=== PATIENT | male | born 1980 | race Hispanic/Latino ===

== ENCOUNTER → 2017-06-29 | Outpatient (REF) | payer OTHER, SELFPAY ==
[2017-06-29 18:25] LABS: BASO % 0.4 % (0.0-1.0); EOS # 0.1 10^3/uL (0.0-0.50); EOS % 1.4 % (0.0-3.0); HEMATOCRIT 43.7 % (42.0-52.0); HEMOGLOBIN 14.6 g/dl (14.0-18.0); IMMATURE GRANULOCYTE % 0.3 % (0-3.0); LYMPH # 2.8 10^3/uL (1.5-4.5); LYMPH % 28.3 % (24.0-44.0); MEAN CORPUSCULAR HEMOGLOBIN 30.1 pg (27.0-33.0); MEAN CORPUSCULAR HGB CONC 33.4 g/dl (32.0-36.5); MEAN CORPUSCULAR VOLUME 90.1 fl (80.0-96.0); MONO # 0.7 10^3/uL (0.0-0.8); MONO % 7.4 % (0.0-5.0); NEUTROPHILS # 6.2 10^3/uL (1.8-7.7); NEUTROPHILS % 62.2 % (36.0-66.0); PLATELET COUNT, AUTOMATED 262 10^3/uL (150-450); RED BLOOD COUNT 4.85 10^6/uL (4.30-6.10); RED CELL DISTRIBUTION WIDTH 12.3 % (11.5-14.5)
[2017-06-29 18:58] LABS: ALBUMIN 3.7 GM/DL (3.2-5.2); ALBUMIN/GLOBULIN RATIO 1.23 (1.00-1.93); ALKALINE PHOSPHATASE 104 U/L (45-117); ALT/SGPT 28 U/L (12-78); ANION GAP 7 MEQ/L (8-16); AST/SGOT 17 U/L (7-37); BILIRUBIN,TOTAL 0.5 MG/DL (0.2-1.0); BLOOD UREA NITROGEN 8 MG/DL (7-18); CALCIUM LEVEL 9.3 MG/DL (8.5-10.1); CARBON DIOXIDE LEVEL 29 MEQ/L (21-32); CHLORIDE LEVEL 107 MEQ/L (98-107); CHOLESTEROL LEVEL 194 MG/DL (<200); CHOLESTEROL RISK RATIO 4.511 (<5); CREATININE FOR GFR 0.78 MG/DL (0.70-1.30); GLOMERULAR FILTRATION RATE > 60.0 (>60); GLUCOSE, FASTING 194 MG/DL (70-100); HDL CHOLESTEROL 43 MG/DL (>40); LDL CHOLESTEROL 119.6 MG/DL (<100); NON-HDL-C 151 MG/DL; POTASSIUM SERUM 4.1 MEQ/L (3.5-5.1); SODIUM LEVEL 143 MEQ/L (136-145); TOTAL PROTEIN 6.7 GM/DL (6.4-8.2); TRIGLYCERIDES LEVEL 157 MG/DL (<150)
[2017-06-29 19:48] LABS: ESTIMATED AVERAGE GLUCOSE 197 MG/DL (60-110); HEMOGLOBIN A1c 8.5 %
[2017-06-29 21:19] LABS: CHLAMYDIA DNA AMPLIFICATION NEGATIVE (NEGATIVE); GC DNA AMPLIFICATION NEGATIVE (NEGATIVE)
[2017-07-01 12:32] LABS: HIV 1&2 SCREEN CENTAUR NEGATIVE (NEGATIVE)
[2017-07-03 00:07] LABS: T PALLIDUM ANTIBODIES Negative (Negative)
== END ==
LOC: M LAB REF 16:36
DX: Z00.00 Encounter for general adult medical examination without abnormal findings (principal); Z68.29 Body mass index [BMI] 29.0-29.9, adult; F41.9 Anxiety disorder, unspecified; Z11.3 Encounter for screening for infections with a predominantly sexual mode of transmission
CPT/HCPCS: 84443

== ENCOUNTER → 2018-03-10 | Outpatient (REF) | payer OTHER | LOC: M LAB REF 16:38 | DX: J02.9 Acute pharyngitis, unspecified (principal) | CPT/HCPCS: 87070 ==

== ENCOUNTER 2018-10-23 11:23 | Emergency (ER) | payer OTHER ==
[~2018-10-23] VITALS: Ht 177.8 cm; Wt 89.1 kg
[~2018-10-23 11:23] MED LIST: AMBI10TA PO; DESYREL PO; INSULANT SC; LAMI25TA OR; LEXA1TAB2 OR; LOPI600T PO; NOVOLOG100 MG/ML SC
--- NOTE | 2018-10-23 13:13 | REP ---
Soft-tissue peroneal ultrasound: History: Swollen area at the base of the scrotum. Question abscess. Findings: Sonographic scanning in the area in question in the perineum demonstrates a 3.1 x 2.7 x 1.8 cm heterogeneous hypoechoic area with peripheral hyperemia consistent with abscess. Electronically Signed by Bertrand Galvan MD 10/23/2018 01:04 P
[2018-10-23] MEDS ORDERED: LIDOCAINE 2% W/EPIN INJ 20ML **PRES FREE INJ ONE (13:15)
[2018-10-23] MEDS ORDERED: BACT800T5 PO (13:56)
[2018-10-23 14:00] VITALS: BP 128/78
== END 2018-10-23 14:04 | disposition home or self-care (01) ==
LOC: M ED 11:23
DX: K61.1 Rectal abscess (principal); E11.9 Type 2 diabetes mellitus without complications; G47.30 Sleep apnea, unspecified; Z72.0 Tobacco use

== ENCOUNTER → 2019-03-04 | Outpatient (REF) | payer OTHER, MEDICAID ==
[~2019-03-04] MED LIST changes: +BACT800T5 PO
[2019-03-04 17:10] LABS: ALBUMIN 3.3 GM/DL (3.2-5.2); ALT/SGPT 26 U/L (12-78); BILIRUBIN,DIRECT < 0.1 MG/DL (0.0-0.2); BILIRUBIN,TOTAL 0.5 MG/DL (0.2-1.0); BLOOD UREA NITROGEN 9 MG/DL (7-18); CALCIUM LEVEL 8.8 MG/DL (8.5-10.1); CARBON DIOXIDE LEVEL 24 MEQ/L (21-32); CHLORIDE LEVEL 105 MEQ/L (98-107); CHOLESTEROL LEVEL 222 MG/DL (<200); CHOLESTEROL RISK RATIO 5.842 (<5); CREATININE FOR GFR 0.77 MG/DL (0.70-1.30); FREE T4 0.99 NG/DL (0.76-1.46); GLOMERULAR FILTRATION RATE > 60.0 (>60); GLUCOSE, FASTING 321 MG/DL (70-100); HDL CHOLESTEROL 38 MG/DL (>40); LDL CHOLESTEROL 145 MG/DL (<100); NON-HDL-C 184 MG/DL; POTASSIUM SERUM 4.4 MEQ/L (3.5-5.1); SODIUM LEVEL 137 MEQ/L (136-145); THYROID STIMULATING HORMONE 0.798 uIU/ML (0.358-3.740); TOTAL 25(OH) VITAMIN D 11.2 NG/ML (30.0-100.0); TOTAL PROTEIN 6.5 GM/DL (6.4-8.2); TRIGLYCERIDES LEVEL 196 MG/DL (<150)
[2019-03-04 17:11] LABS: HEMOGLOBIN A1c 12.2 %
[2019-03-04 17:30] LABS: BASO % 0.5 % (0.0-1.0); EOS # 0.1 10^3/uL (0.0-0.5); EOS % 1.3 % (0.0-3.0); HEMATOCRIT 46.4 % (42.0-52.0); HEMOGLOBIN 15.7 g/dl (13.5-17.5); LYMPH # 3.2 10^3/uL (1.5-5.0); LYMPH % 36.7 % (24.0-44.0); MEAN CORPUSCULAR HEMOGLOBIN 30.1 pg (27.0-33.0); MEAN CORPUSCULAR HGB CONC 33.8 g/dl (32.0-36.5); MEAN CORPUSCULAR VOLUME 89.1 fl (80.0-96.0); MONO # 0.6 10^3/uL (0.0-0.8); MONO % 7.2 % (0.0-5.0); NEUTROPHILS # 4.7 10^3/uL (1.5-8.5); NEUTROPHILS % 54.1 % (36.0-66.0); PLATELET COUNT, AUTOMATED 276 10^3/uL (150-450); RED BLOOD COUNT 5.21 10^6/uL (4.30-6.10); WHITE BLOOD COUNT 8.7 10^3/uL (4.0-10.0)
[2019-03-04 17:50] LABS: HIV 1&2 SCREEN CENTAUR NEGATIVE (NEGATIVE)
[2019-03-08 00:06] LABS: HSV IgM TYPES 1&2 <0.91 Ratio (0.00-0.90)
== END ==
LOC: M LAB REF 16:30
PROVIDERS: ATTEND Family Medicine
DX: Z87.438 Personal history of other diseases of male genital organs (principal)

== ENCOUNTER → 2019-06-17 | Outpatient (REF) | payer OTHER, MEDICAID ==
[2019-06-17 17:19] LABS: INFLUENZA A AMPLIFICATION NEGATIVE (NEGATIVE); INFLUENZA B AMPLIFICATION NEGATIVE (NEGATIVE)
== END ==
LOC: M LAB REF 16:33
PROVIDERS: ATTEND Physician Assistant
DX: J11.1 Influenza due to unidentified influenza virus with other respiratory manifestations (principal)

== ENCOUNTER 2020-04-18 12:00 | Emergency (ER) | payer MEDICAID, OTHER ==
[~2020-04-18] VITALS: Ht 182.9 cm; Wt 91.3 kg
[2020-04-18] MEDS ORDERED: CYCL-707 PO (12:54)
[2020-04-18] MEDS ORDERED: IBUP-1022 PO (12:54)
[2020-04-18 13:03] VITALS: BP 121/77
== END 2020-04-18 13:09 | disposition home or self-care (01) ==
LOC: M ED 12:00
DX: S39.012A Strain of muscle, fascia and tendon of lower back, initial encounter (principal); X50.0XXA Overexertion from strenuous movement or load, initial encounter; Y92.89 Other specified places as the place of occurrence of the external cause; Y93.89 Activity, other specified; Y99.8 Other external cause status; M54.9 Dorsalgia, unspecified; G89.29 Other chronic pain; G47.30 Sleep apnea, unspecified; E11.9 Type 2 diabetes mellitus without complications; F17.200 Nicotine dependence, unspecified, uncomplicated

== ENCOUNTER → 2020-05-31 | Outpatient (REF) | payer OTHER ==
[~2020-05-31] MED LIST changes: +CYCL-707 PO; +IBUP-1022 PO
[2020-05-31 13:23] LABS: HEMOGLOBIN A1c 11.2 %
[2020-05-31 13:39] LABS: ALBUMIN 3.4 GM/DL (3.2-5.2); ALT/SGPT 17 U/L (12-78); BILIRUBIN,TOTAL 0.5 MG/DL (0.2-1.0); BLOOD UREA NITROGEN 6 MG/DL (7-18); CALCIUM LEVEL 9.6 MG/DL (8.5-10.1); CARBON DIOXIDE LEVEL 26 MEQ/L (21-32); CHLORIDE LEVEL 106 MEQ/L (98-107); CHOLESTEROL LEVEL 199 MG/DL (<200); CHOLESTEROL RISK RATIO 4.422 (<5); GLOMERULAR FILTRATION RATE > 60.0 (>60); GLUCOSE, FASTING 278 MG/DL (70-100); HDL CHOLESTEROL 45 MG/DL (>40); LDL CHOLESTEROL 128 MG/DL (<100); NON-HDL-C 154 MG/DL; POTASSIUM SERUM 4.6 MEQ/L (3.5-5.1); SODIUM LEVEL 140 MEQ/L (136-145); THYROID STIMULATING HORMONE 0.572 uIU/ML (0.358-3.740); TOTAL PROTEIN 6.4 GM/DL (6.4-8.2); TRIGLYCERIDES LEVEL 132 MG/DL (<150)
== END ==
LOC: M LAB REF 11:19
PROVIDERS: ATTEND Pediatrics
DX: Z13.228 Encounter for screening for other metabolic disorders (principal)

== ENCOUNTER 2020-06-30 12:06 | Emergency (ER) | payer OTHER ==
[~2020-06-30] VITALS: Ht 180.3 cm; Wt 91.0 kg
[2020-06-30] MEDS ORDERED: METF10004 (12:15)
[2020-06-30] MEDS ORDERED: methocarbamoL 750 MG TAB PO ONE (12:35)
[2020-06-30] MEDS ORDERED: IBUPROFEN 600MG TAB PO ONE (12:35)
--- NOTE | 2020-06-30 13:11 | REP ---
INDICATION: low back injury; vert. point tender. COMPARISON: None. TECHNIQUE: Five views. FINDINGS: There is mild scoliosis convex left. Vertebral body heights, interspacing and alignment are normal. Schmorl's nodes are incidentally noted in the opposing endplates of L1 and L2. The pedicles and facets are unremarkable. There is no spondylolysis or spondylolisthesis. The sacroiliac articulations are unremarkable. IMPRESSION: Mild scoliosis. Endplate Schmorl's nodes as described. <Electronically signed by Ron Leahy > 06/30/20 [id number]
[2020-06-30] MEDS ORDERED: ROBA750T4 PO (13:29)
[2020-06-30 13:37] VITALS: BP 121/63
== END 2020-06-30 13:38 | disposition home or self-care (01) ==
LOC: M ED 12:06
DX: S39.012A Strain of muscle, fascia and tendon of lower back, initial encounter (principal); X50.0XXA Overexertion from strenuous movement or load, initial encounter; Y92.9 Unspecified place or not applicable; Y93.9 Activity, unspecified; Y99.0 Civilian activity done for income or pay; E11.9 Type 2 diabetes mellitus without complications; F17.200 Nicotine dependence, unspecified, uncomplicated; Z79.899 Other long term (current) drug therapy; Z79.84 Long term (current) use of oral hypoglycemic drugs

== ENCOUNTER → 2022-01-22 | Outpatient (REF) | payer OTHER ==
[~2022-01-22] MED LIST changes: +METF10004; +ROBA750T4 PO
[2022-01-22 17:30] LABS: BASO % 0.3 % (0.0-1.0); EOS # 0.1 10^3/uL (0.0-0.5); EOS % 1.2 % (0.0-3.0); HEMATOCRIT 45.2 % (42.0-52.0); HEMOGLOBIN 14.7 g/dl (13.5-17.5); LYMPH # 3.4 10^3/uL (1.5-5.0); LYMPH % 38.4 % (24.0-44.0); MEAN CORPUSCULAR HEMOGLOBIN 30.6 pg (27.0-33.0); MEAN CORPUSCULAR HGB CONC 32.5 g/dl (32.0-36.5); MONO # 0.7 10^3/uL (0.0-0.8); MONO % 8.1 % (2.0-8.0); NEUTROPHILS # 4.6 10^3/uL (1.5-8.5); NEUTROPHILS % 51.8 % (36.0-66.0); PLATELET COUNT, AUTOMATED 268 10^3/uL (150-450); RED BLOOD COUNT 4.81 10^6/uL (4.30-6.10); WHITE BLOOD COUNT 8.9 10^3/uL (4.0-10.0)
[2022-01-22 17:40] LABS: ALBUMIN 3.7 GM/DL (3.2-5.2); ALT/SGPT 65 U/L (12-78); BILIRUBIN,TOTAL 0.4 MG/DL (0.2-1.0); BLOOD UREA NITROGEN 8 MG/DL (7-18); CALCIUM LEVEL 9.1 MG/DL (8.5-10.1); CARBON DIOXIDE LEVEL 25 MEQ/L (21-32); CHLORIDE LEVEL 111 MEQ/L (98-107); CHOLESTEROL LEVEL 140 MG/DL (<200); CHOLESTEROL RISK RATIO 2.258 (<5); CREATININE FOR GFR 0.75 MG/DL (0.70-1.30); GLOMERULAR FILTRATION RATE > 60.0 (>60); GLUCOSE, FASTING 83 MG/DL (70-100); HDL CHOLESTEROL 62 MG/DL (>40); LDL CHOLESTEROL 62 MG/DL (<100); NON-HDL-C 78 MG/DL; POTASSIUM SERUM 4.3 MEQ/L (3.5-5.1); SODIUM LEVEL 142 MEQ/L (136-145); TOTAL PROTEIN 6.6 GM/DL (6.4-8.2); TRIGLYCERIDES LEVEL 79 MG/DL (<150)
[2022-01-22 18:15] LABS: VITAMIN B12 LEVEL 550 PG/ML (247-911)
[2022-01-22 22:43] LABS: HEMOGLOBIN A1c 6.4 %
== END ==
LOC: M LAB REF 16:08
PROVIDERS: ATTEND Pediatrics
DX: E11.9 Type 2 diabetes mellitus without complications (principal); E78.5 Hyperlipidemia, unspecified; R20.2 Paresthesia of skin

== ENCOUNTER → 2022-02-10 | Outpatient (CLI) | payer OTHER | LOC: M RAD 10:39 | PROVIDERS: ATTEND Pediatrics | DX: R20.2 Paresthesia of skin (principal) ==

== ENCOUNTER 2022-04-12 15:35 | Emergency (ER) | payer OTHER ==
[~2022-04-12] VITALS: Ht 182.9 cm; Wt 94.6 kg
[~2022-04-12 15:35] MED LIST changes: -METF10004; +METF10004 PO
[2022-04-12 15:36] VITALS: BP 131/73
[2022-04-12] MEDS ORDERED: HYDR-3363 (15:46)
[2022-04-12] MEDS ORDERED: TRUL10IN (15:46)
[2022-04-12] MEDS ORDERED: SERT50TA29 (15:46)
[2022-04-12] MEDS ORDERED: CETI-24 (15:46)
== END 2022-04-12 17:59 | disposition home or self-care (01) ==
LOC: M ED 17:37
DX: S93.401A Sprain of unspecified ligament of right ankle, initial encounter (principal); X50.1XXA Overexertion from prolonged static or awkward postures, initial encounter; Y99.0 Civilian activity done for income or pay; E11.9 Type 2 diabetes mellitus without complications; F41.9 Anxiety disorder, unspecified; F32.9 Major depressive disorder, single episode, unspecified; G47.33 Obstructive sleep apnea (adult) (pediatric); F17.200 Nicotine dependence, unspecified, uncomplicated; Z79.84 Long term (current) use of oral hypoglycemic drugs; Z79.899 Other long term (current) drug therapy

== ENCOUNTER 2022-07-21 19:17 | Emergency (ER) | payer OTHER ==
[~2022-07-21] VITALS: Ht 177.8 cm; Wt 94.4 kg
[~2022-07-21 19:17] MED LIST changes: +CETI-24; +HYDR-3363; +SERT50TA29; +TRUL10IN
[2022-07-21 19:19] VITALS: BP 117/62
== END 2022-07-22 01:25 | disposition left against medical advice (07) ==
LOC: M ED 19:17
DX: M25.562 Pain in left knee (principal); Z53.21 Procedure and treatment not carried out due to patient leaving prior to being seen by health care provider

== ENCOUNTER 2022-07-22 17:45 | Emergency (ER) | payer OTHER ==
[~2022-07-22] VITALS: Ht 177.8 cm; Wt 95.4 kg
[2022-07-22 17:45] VITALS: BP 132/82
== END 2022-07-22 21:23 | disposition left against medical advice (07) ==
LOC: M ED 17:45
DX: Z53.21 Procedure and treatment not carried out due to patient leaving prior to being seen by health care provider (principal)

== ENCOUNTER → 2023-03-20 | Outpatient (REF) | payer OTHER | LOC: M LAB REF 21:35 | PROVIDERS: ATTEND Physician Assistant Medical | DX: B34.9 Viral infection, unspecified (principal) ==